=== PATIENT | female | born 1930 | race Caucasian/White ===

== ENCOUNTER → 2016-09-09 | Outpatient (CLI) | payer MEDICARE, OTHER ==
--- NOTE | 2016-09-09 11:31 | HKNOTE ---
DATE OF SERVICE: 09/09/2016 INTERVAL HISTORY: The patient presents today for her first postoperative evaluation. She is now 13 days status post closed reduction and intramedullary rodding of her left intertrochanteric hip fracture. She is at the [facility] currently. She denies any fevers or chills. She denies any pus or drainage from the incision site. She is currently on Coumadin for DVT prophylaxis. She presents today for her first postoperative evaluation. PHYSICAL EXAMINATION: The patient alert and oriented, normal for patient, in no acute distress. Exam of the incision demonstrates it to be clean, dry and intact. There is no pus or drainage noted. Silex are in place. Compartments are soft. There is no erythema or warmth. Homans sign is negative. She is neurovascularly intact distally. IMAGING: X-rays of the left hip were reviewed from an outside facility and demonstrate good anatomic alignment of the fracture site. The intramedullary gabe is in place. No acute fracture or dislocation identified. ASSESSMENT: Thirteen days status post closed reduction and intramedullary rodding, left intertrochanteric hip fracture. DISCUSSION: She is to continue Coumadin daily as dosed by Dr. Haynes for DVT prophylaxis. We will check daily INRs and adjust the dosage as needed. She is to continue physical therapy at the [facility]. She is to continue toe touch weightbearing for 4 additional weeks. The malika were removed and Steri- Strips were applied today. The patient will follow up in 4 weeks for repeat evaluation. Dictated By: RUDY CORADO/NANCY Conf#: [id number] DID#: [id number]
== END | disposition home or self-care (01) ==
LOC: HKI 09:38
PROVIDERS: ATTEND Orthopaedic Surgery
DX: S72.142D Displaced intertrochanteric fracture of left femur, subsequent encounter for closed fracture with routine healing (principal); X58.XXXD Exposure to other specified factors, subsequent encounter
CPT/HCPCS: G0463

== ENCOUNTER → 2016-10-10 | Outpatient (CLI) | END | disposition home or self-care (01) | DX: Z47.89 Encounter for other orthopedic aftercare (principal); S72.142D Displaced intertrochanteric fracture of left femur, subsequent encounter for closed fracture with routine healing ==